=== PATIENT | male | born 1995 | race Hispanic/Latino ===

== ENCOUNTER 2018-05-02 20:37 | Emergency (ER) | payer OTHER ==
[2018-05-02] MEDS ORDERED: Tdap Vaccine 0.5 ml Vial (10-64 yrs) IM ONE ×2 (20:57→21:07)
[2018-05-02] MEDS ORDERED: Bacitracin 500 Units/gm Oint Foilpak UD TOP STA (20:58)
[2018-05-02] MEDS ORDERED: Lidocaine 1% w Epi 1:100,000 Inj INJ STA (20:58)
[2018-05-02] MEDS ORDERED: Bacitracin 500 Units/gm Oint Foilpak UD ONE (21:06)
[2018-05-02] MEDS ORDERED: Lidocaine 2% w Epi 1:100,000 Inj IJ ONE (21:09)
--- NOTE | 2018-05-02 21:47 | C.PDOC ---
History Of Present Illness 22 y/o male pt presents to the ER c/o right-sided head injury. Pt reports he was drinking and walking when he fell and hit the right side of his head against the wall. Pt notes that he was bleeding and was concerned when after he placed a bandage, he was still bleeding. Pt also complained of headache. Pt denies any LOC, nausea and vomiting. Pt is also not UTD with tetanus. Time Seen by Provider: 05/02/18 20:52 Chief Complaint (Nursing): Headache History Per: Patient History/Exam Limitations: no limitations Onset/Duration Of Symptoms: Days Current Symptoms Are (Timing): Still Present Past Medical History Reviewed: Historical Data, Nursing Documentation, Vital Signs Vital Signs: Last Vital Signs Temp 98 F 05/02/18 20:43 Pulse 92 H 05/02/18 20:43 Resp 20 05/02/18 20:43 BP 137/84 05/02/18 20:43 Pulse Ox 98 05/02/18 20:43 Family History: States: No Known Family Hx - Social History Hx Alcohol Use: Yes Hx Substance Use: No - Immunization History Hx Tetanus Toxoid Vaccination: No Hx Influenza Vaccination: No Hx Pneumococcal Vaccination: No Review Of Systems Except As Marked, All Systems Reviewed And Found Negative. Gastrointestinal: Negative for: Nausea, Vomiting Musculoskeletal: Positive for: Other (right-side head injury ) Skin: Positive for: Other (active bleeding on head ) Neurological: Positive for: Headache. Negative for: Other (LOC) Physical Exam - Physical Exam Appears: Non-toxic, No Acute Distress Skin: Warm, Dry Head: Normacephalic, Laceration (2 cm superficial laceration on right side of parietal area ), Other (contusion; no active bleeding, minor oozing of blood ) ED Course And Treatment O2 Sat by Pulse Oximetry: 98 (RA) Pulse Ox Interpretation: Normal - CT Scan/US head Other Rad Studies (CT/US): Read By Radiologist, Radiology Report Reviewed CT/US Interpretation: Name:BRENT ORTEZ Exam Date:May 02, 2018 9:13:58 PM EST. Modality Type:CT. Description:CT - BRAIN. Gender:M Laterality:Not applicable. :94 Referring Physician:Suzie Childs (LYNN). EXAM: CT Head without Intravenous Contrast. CLINICAL HISTORY: Fall, ETOH. TECHNIQUE: Axial computed tomography images of the head/brain without intravenous contrast. 0.00 mGy-cm. COMPARISON: None provided. FINDINGS: BRAIN. No acute intraparenchymal hemorrhage. No mass lesion. No CT evidence for acute territorial infarct. No midline shift or extra- axial collections. VENTRICLES: No hydrocephalus. ORBITS: The orbits are unremarkable. SINUSES AND MASTOIDS: The paranasal sinuses and mastoid air cells are clear. BONES: No fracture. SOFT TISSUES: Unremarkable. IMPRESSION: No acute intracranial abnormality. . Electronically signed on May 02, 2018 9:36:50 PM EST by: Clem Quinteros M.D., MBA Certified By [facility]BR & [facility] Progress Note: plans: -- CT head. -- tetanus. -- bacitracin. Pt will have stapled applied. Procedure: Wound Repair - Time Out Time Out: Side verified - Consent Obtained Consent obtained: Verbal - Performed by Performed by: Mid-level Provider - Indications Indication(s):: Laceration - Location Location:: Right, Scalp Dimensions Length cm: 2 Depth:: Epidermis - Anesthetic Technique Anesthetic Technique: Local Local/Regional Anesthetic:: Lidocaine 1% w/epi - Debris Debris:: None - Complexity Complexity:: Simple (one layer) (5 paulette applied) - Muscle repiar layer closed with Muscle repair layer closed with:: Abx ointment applied, Tetanus ordered - Patient tolerated procedure Patient Tolerated Procedure:: Well Disposition - Disposition Disposition: HOME/ ROUTINE Disposition Time: 22:25 Condition: IMPROVED Additional Instructions: Follow up with PMD within 1-2 days. Return to ED if feel worse. staple removal in 1 week. Instructions: Laceration Repair With Paulette (DC), Minor Head Injury (DC) Forms: [facility] ([place]) - Clinical Impression Clinical Impression: Head injury, Scalp laceration - PA / [employer] / Resident Statement / has reviewed & agrees with the documentation as recorded. - Scribe Statement The provider has reviewed the documentation as recorded by the Ruben Martinez Do All medical record entries made by the Scribe were at my direction and personally dictated by me. I have reviewed the chart and agree that the record accurately reflects my personal performance of the history, physical exam, medical decision making, and the department course for this patient. I have also personally directed, reviewed, and agree with the discharge instructions and disposition.
[2018-05-02 22:47] VITALS: BP 135/78; PULSE 88; RESP 18; TEMP 98.1
[2018-05-02 23:40] VITALS: O2SAT 98
--- NOTE | 2018-05-03 10:41 | CT ---
Date of service: 05/02/2018 PROCEDURE: CT HEAD WITHOUT CONTRAST. HISTORY: Status post fall. ETOH COMPARISON: None available. TECHNIQUE: Axial computed tomography images were obtained through the head/brain without intravenous contrast. Radiation dose: Total exam DLP = 1060.81 mGy-cm. This CT exam was performed using one or more of the following dose reduction techniques: Automated exposure control, adjustment of the mA and/or kV according to patient size, and/or use of iterative reconstruction technique. FINDINGS: HEMORRHAGE: No acute parenchymal, subarachnoid nor extra-axial hemorrhage. BRAIN: No mass effect or edema. No atrophy or chronic microvascular ischemic changes. VENTRICLES: Unremarkable. No hydrocephalus. CALVARIUM: Calvarium intact. There is mild right superior anterior parietal scalp swelling.. PARANASAL SINUSES: . Frontal sinuses are hypoplastic. The remaining visualized paranasal sinuses appear well-developed. Mild mucosal thickening noted within multiple right-sided ethmoid air cells. MASTOID AIR CELLS: Unremarkable as visualized. No inflammatory changes. OTHER FINDINGS: None. IMPRESSION: No acute intracranial hemorrhage. Mild right superior frontal scalp swelling.
== END 2018-05-02 22:45 | disposition home or self-care (01) ==
LOC: C.ER 20:37
DX: S01.01XA Laceration without foreign body of scalp, initial encounter (principal); W18.30XA Fall on same level, unspecified, initial encounter; Y93.01 Activity, walking, marching and hiking